=== PATIENT | female | born 1975 | race Caucasian/White ===

== ENCOUNTER 2021-07-24 21:19 | Emergency (ER) | payer MEDICAID, OTHER ==
[~2021-07-24] VITALS: Ht 160 cm; Wt 113.6 kg
[2021-07-24] MEDS ORDERED: GABA-1201 PO (22:04)
[2021-07-25] MEDS ORDERED: OxyCODONE HCL/ACETAMINOPHEN 5-325 MG TABLET PO ONE
[2021-07-25 00:15] VITALS: BP 121/75
[2021-07-25] MEDS ORDERED: PERCT PO (00:20)
== END 2021-07-25 00:40 | disposition home or self-care (01) ==
LOC: EMS 21:19
DX: R10.2 Pelvic and perineal pain (principal); C51.9 Malignant neoplasm of vulva, unspecified; Z88.5 Allergy status to narcotic agent; Z79.899 Other long term (current) drug therapy
CPT/HCPCS: 99283

== ENCOUNTER 2023-11-26 16:10 | Inpatient (IN) | payer OTHER ==
[~2023-11-26] VITALS: Ht 165.1 cm; Wt 128.0 kg
[~2023-11-26 16:10] MED LIST: GABA-1201 PO; PERCT PO
[2023-11-26] MEDS ORDERED: 0.9% SODIUM CHLORIDE 10 ML SYRINGE IVP PRN (16:15)
[2023-11-26] MEDS: SODIUM CHLORIDE 0.9% 3,000 ML IV ONE (17:20)
[2023-11-26] MEDS: ACETAMINOPHEN 1000 MG/ISO-OSM 100 ML IV ONE (17:20)
[2023-11-26] MEDS: PIPERACILLIN SODIUM/TAZOBACTAM 4.5 GM in DEXTROSE 5%-WATER 100 ML IV ONE (17:27)
[2023-11-26] MEDS: VANCOMYCIN HCL 1.25 GM in DEXTROSE 5%-WATER 250 ML IV ONE (17:27)
[2023-11-26 17:36] LABS: BASOPHILS % (AUTO) 0.1 % (0.0-2.0); EOSINOPHILS % (AUTO) 0.1 % (1.0-6.0); HEMATOCRIT 41.6 % (36-46); HEMOGLOBIN 13.6 g/dL (12.0-16.0); LYMPHOCYTES # (AUTO) 0.9 K/uL (1.0-4.8); LYMPHOCYTES % (AUTO) 11.8 % (22.0-44.0); MEAN CORPUSCULAR HGB CONC 32.7 G/dL (31.0-37.0); MEAN CORPUSCULAR VOLUME 92 fL (80-100); MONOCYTES # (AUTO) 0.2 K/uL (0.1-1.0); MONOCYTES % (AUTO) 2.6 % (2.0-9.0); NEUTROPHILS # (AUTO) 6.2 K/uL (1.8-7.7); PLATELET COUNT (AUTO) 232 K/uL (150-450); RED BLOOD CELL COUNT(AUTO) 4.53 MIL/uL (4.00-5.20); RED CELL DISTRIBUTION WIDTH 15.7 % (11.5-14.5); WHITE BLOOD COUNT (AUTO) 7.2 K/uL (4.5-11.0)
[2023-11-26 17:37] LABS: NEUTROPHILS % (AUTO) 85.4 % (40.0-70.0)
[2023-11-26 17:38] LABS: ANION GAP 14 mmol/L (8-16); CALCIUM, TOTAL 8.8 mg/dL (8.8-10.5); CARBON DIOXIDE 24 mmol/L (22-29); CHLORIDE 88 mmol/L (98-107); CREATININE 3.52 mg/dL (0.60-1.30); GLOMERULAR FILTR. RATE CALC 14 mL/min (>60); GLUCOSE,RANDOM 89 mg/dL (70-110); POTASSIUM 5.1 mmol/L (3.5-5.1); SODIUM SERUM 126 mmol/L (136-145); UREA NITROGEN, BLOOD 36 mg/dL (7-18)
[2023-11-26 17:44] LABS: TROPONIN I-HIGH SENSITIVITY 62 ng/L (<51)
[2023-11-26 17:45] LABS: LACTIC ACID 5.5 mmol/L (0.4-2.0)
[2023-11-26 17:50] LABS: B-TYPE NATRIURETIC PEPTIDE 522 pg/mL (0-100); PLATELET MORPHOLOGY COMMENT LARGE PLTS PRESENT; RBC MORPHOLOGY COMMENT NORMAL RBC MORPH
[2023-11-26 18:15] LABS: ALANINE AMINOTRANSFERASE 58 U/L (12-78); ALBUMIN 2.8 g/dL (3.4-5.0); ALKALINE PHOSPHATASE 58 U/L (46-116); ASPARTATE AMINOTRANSFERASE 101 U/L (15-37); PHOSPHORUS 2.1 mg/dL (2.5-4.9); TOTAL PROTEIN, SERUM 6.9 g/dL (6.4-8.2)
[2023-11-26 18:20] LABS: CREATINE KINASE, TOTAL ONLY 2388 U/L (26-192)
[2023-11-26 18:38] LABS: COVID AG,FIA SOURCE NASAL SWAB
[2023-11-26] MEDS: NOREPINEPHRINE 8 MG/0.9 % NACL 250 ML IV PRN (18:47)
[2023-11-26 19:03] LABS: SARS-COV2 (COVID) ANTIGEN,FIA Negative (Negative)
[2023-11-26 19:16] LABS: C-REACTIVE PROTEIN QUANT 39.25 mg/dL (0.00-0.30)
[2023-11-26 19:18] LABS: INFLUENZA TYPE A NEGATIVE FOR TYPE A (NEGATIVE); INFLUENZA TYPE B NEGATIVE FOR TYPE B (NEGATIVE)
[2023-11-26 20:00] VITALS: BP 133/73; PULSE 92; PULSE 95; RESP 22; TEMP 100.5; O2SAT 96
[2023-11-26] MEDS ORDERED: ONDANSETRON HCL 4 MG/2 ML VIAL IVP PRN (20:00)
[2023-11-26] MEDS: *CLINICAL-MEROPENEM DOSING CLINICAL ONE (20:14)
[2023-11-26] MEDS ORDERED: DEXTROSE 50%-WATER 25 GM/50 ML SYRINGE IVP PRN (20:15)
[2023-11-26 20:33] LABS: APPEARANCE,URINE HAZY (CLEAR); BILIRUBIN,URINE NEGATIVE (NEGATIVE); COLOR,URINE YELLOW (YELLOW); CREATININE,URINE RANDOM 161.5 mg/dL (30.0-125.0); GLUCOSE, URINE (UA) NEGATIVE (NEGATIVE); KETONES,URINE NEGATIVE (NEGATIVE); LEUKOCYTE ESTERASE ,URINE NEGATIVE (NEGATIVE); NITRATE,URINE NEGATIVE (NEGATIVE); OCCULT BLOOD,URINE MODERATE (NEGATIVE); PROTEIN,URINE 30-70 mg/dL (NEGATIVE); SPECIFIC GRAVITIY, URINE 1.016 (1.003-1.030); UROBILINOGEN,URINE <=1.0 mg/dL (<=1.0)
[2023-11-26] MEDS ORDERED: VANCOMYCIN HCL 1 GM in DEXTROSE 5%-WATER 250 ML IV PRN (20:45)
[2023-11-26 20:48] LABS: BACTERIA,URINE Few /HPF (None Seen); SQUAMOUS EPITHELIAL CELL,UR Moderate /LPF (None Seen); WBC,URINE 0-2 /HPF (0-5)
[2023-11-26 21:00] VITALS: BP 153/108; PULSE 98; RESP 22; TEMP 100.5; O2SAT 96
[2023-11-26 21:40] LABS: TROPONIN I-HIGH SENSITIVITY 37 ng/L (<51)
[2023-11-26] MEDS: CLINDAMYCIN 600 MG/D5% WATER 50 ML IV ONE (21:59)
[2023-11-26] MEDS: MAGNESIUM SULFATE 1 GM in DEXTROSE 5%-WATER 50 ML IV ONE (21:59)
[2023-11-26 22:00] VITALS: BP 101/66; PULSE 95; RESP 22; TEMP 100.5; O2SAT 96
[2023-11-26] MEDS: CHLORHEXIDINE GLUCONATE 2% TOWELETTE [2'S/6'S] TP SCH (22:00)
[2023-11-26] MEDS: SODIUM CHLORIDE 0.9% 500 ML IV ONE (22:03)
[2023-11-26] MEDS: MEROPENEM 1 GM in SODIUM CHLORIDE 0.9% 100 ML IV SCH (22:42)
[2023-11-26 22:55] LABS: ABG BASE EXCESS -6.5 mmol/L (-2.0-3.0); ABG CARBOXYHEMOGLOBIN 0.4 % (0.5-1.5); ABG HCO3 20.1 mmol/L (21.0-28.0); ABG METHEMOGLOBIN 0.7 % (0.0-1.5); ABG OXYGEN CONTENT 18.3 mL/dL (15.0-23.0); ABG OXYHEMOGLOBIN 95.9 % (94.0-98.0); ABG PCO2 33 mmHg (32.0-45.0); ABG PH 7.369 (7.350-7.450); ABG TOTAL HEMOGLOBIN 13.5 G/dL (12.0-16.0); ALLEN TEST, BLOOD GAS POS; PO2, ARTERIAL BG 95.5 mmHg (83.0-108.0); SITE, BLOOD GAS RT RADIAL; SOURCE, BLOOD GAS ARTERIAL; TEMPERATURE, FAHRENHEIT, BG 100.7 FAHREN (96.0-98.6)
[2023-11-26 22:56] LABS: O2 DEVICE,BLOOD GAS CANNULA (ROOM AIR)
[2023-11-26 23:00] VITALS: BP 102/51; PULSE 91; RESP 22; TEMP 100.5; O2SAT 96
[2023-11-26] MEDS: ACETAMINOPHEN 325 MG TABLET PO PRN (23:40)
[2023-11-27] VITALS (7 sets, daily range): BP systolic 98–137; BP diastolic 55–80; PULSE 78–90; RESP 22–23; TEMP 100.6–101.5; O2SAT 98
[2023-11-27 06:36] LABS: BASOPHILS % (AUTO) 0.2 % (0.0-2.0); EOSINOPHILS % (AUTO) 0.3 % (1.0-6.0); HEMATOCRIT 36.9 % (36-46); HEMOGLOBIN 12.3 g/dL (12.0-16.0); LYMPHOCYTES # (AUTO) 0.6 K/uL (1.0-4.8); LYMPHOCYTES % (AUTO) 9.3 % (22.0-44.0); MEAN CORPUSCULAR HEMOGLOBIN 30.3 pg (26.0-34.0); MEAN CORPUSCULAR HGB CONC 33.2 G/dL (31.0-37.0); MEAN CORPUSCULAR VOLUME 91 fL (80-100); MONOCYTES # (AUTO) 0.2 K/uL (0.1-1.0); MONOCYTES % (AUTO) 2.4 % (2.0-9.0); NEUTROPHILS # (AUTO) 5.7 K/uL (1.8-7.7); PLATELET COUNT (AUTO) 184 K/uL (150-450); RED BLOOD CELL COUNT(AUTO) 4.05 MIL/uL (4.00-5.20); RED CELL DISTRIBUTION WIDTH 15.8 % (11.5-14.5); WHITE BLOOD COUNT (AUTO) 6.5 K/uL (4.5-11.0)
[2023-11-27 06:37] LABS: NEUTROPHILS % (AUTO) 87.8 % (40.0-70.0); RBC MORPHOLOGY COMMENT NORMAL RBC MORPH
[2023-11-27 07:03] LABS: ALBUMIN 2.2 g/dL (3.4-5.0); BILIRUBIN,TOTAL 0.7 mg/dL (0.1-1.0); CALCIUM, TOTAL 7.9 mg/dL (8.8-10.5); CREATININE 2.24 mg/dL (0.60-1.30); POTASSIUM 4.3 mmol/L (3.5-5.1); TOTAL PROTEIN, SERUM 6.1 g/dL (6.4-8.2)
[2023-11-27 07:51] LABS: GLUCOMETER DEV NAME(LOC) ERT.6; GLUCOSE,POINT OF CARE 100 MG/DL (70-110)
[2023-11-27 07:51] LABS: GLUCOMETER DEV NAME(LOC) ERT.6; GLUCOSE,POINT OF CARE 73 MG/DL (70-110)
[2023-11-27] MEDS: FAMOTIDINE 20 MG/2 ML VIAL IVP SCH (08:03)
[2023-11-27] MEDS: OxyCODONE HCL 5 MG IR TABLET PO ONE (08:03)
[2023-11-27] MEDS: NOREPINEPHRINE 8 MG/0.9 % NACL 250 ML IV PRN (08:05)
[2023-11-27] MEDS: VANCOMYCIN HCL 1 GM in DEXTROSE 5%-WATER 250 ML IV ONE (09:29)
[2023-11-27] MEDS: HYDROmorphone HCL 2 MG/ML SYRINGE IVP ONE (12:24)
[2023-11-27 14:46] LABS: GLUCOMETER DEV NAME(LOC) ERT.6; GLUCOSE,POINT OF CARE 119 MG/DL (70-110)
[2023-11-27] MEDS: SODIUM CHLORIDE 0.9% 1,000 ML IV ONE (15:25)
[2023-11-27] MEDS: CLINDAMYCIN 900 MG/D5% WATER 50 ML IV SCH (16:30)
[2023-11-27] MEDS ORDERED: ALBUMIN HUMAN 25%-25GM/100ML 100 ML IV SCH (18:00)
[2023-11-27 18:05] LABS: GLUCOMETER DEV NAME(LOC) ERT.6; GLUCOSE,POINT OF CARE 133 MG/DL (70-110)
[2023-11-27] MEDS: LORazepam 1 MG TABLET PO ONE (20:01)
[2023-11-27] MEDS: HYDROmorphone HCL 2 MG/ML SYRINGE IVP PRN (20:02)
[2023-11-27] MEDS: ALBUMIN HUMAN 25%-25GM/100ML 100 ML IV SCH (20:18)
[2023-11-27] MEDS: IBUPROFEN 200 MG TABLET PO ONE (23:51)
[2023-11-27] MEDS: HEPARIN SODIUM,PORCINE 5,000 UNITS/ML VIAL SQ SCH (23:58)
[2023-11-28 06:16] LABS: VANCOMYCIN,RANDOM 0.3 mcg/mL (25.0-50.0)
[2023-11-28] MEDS: LORazepam 2 MG/ML VIAL IVP ONE (06:29)
[2023-11-28] MEDS: VANCOMYCIN HCL 1.5 GM in DEXTROSE 5%-WATER 250 ML IV ONE (08:10)
[2023-11-28 08:28] LABS: BASOPHILS % (AUTO) 0.2 % (0.0-2.0); EOSINOPHILS % (AUTO) 0.3 % (1.0-6.0); HEMATOCRIT 31.8 % (36-46); HEMOGLOBIN 10.7 g/dL (12.0-16.0); LYMPHOCYTES # (AUTO) 0.5 K/uL (1.0-4.8); LYMPHOCYTES % (AUTO) 6.8 % (22.0-44.0); MEAN CORPUSCULAR HEMOGLOBIN 30.5 pg (26.0-34.0); MEAN CORPUSCULAR HGB CONC 33.5 G/dL (31.0-37.0); MEAN CORPUSCULAR VOLUME 91 fL (80-100); MONOCYTES # (AUTO) 0.3 K/uL (0.1-1.0); MONOCYTES % (AUTO) 3.3 % (2.0-9.0); NEUTROPHILS # (AUTO) 7.1 K/uL (1.8-7.7); PLATELET COUNT (AUTO) 136 K/uL (150-450); RED BLOOD CELL COUNT(AUTO) 3.49 MIL/uL (4.00-5.20); RED CELL DISTRIBUTION WIDTH 15.8 % (11.5-14.5); WHITE BLOOD COUNT (AUTO) 7.9 K/uL (4.5-11.0)
[2023-11-28 08:30] LABS: NEUTROPHILS % (AUTO) 89.4 % (40.0-70.0)
[2023-11-28 08:41] LABS: ANION GAP 10 mmol/L (8-16); CALCIUM, TOTAL 8.1 mg/dL (8.8-10.5); CARBON DIOXIDE 25 mmol/L (22-29); CHLORIDE 98 mmol/L (98-107); CREATININE 0.85 mg/dL (0.60-1.30); GLOMERULAR FILTR. RATE CALC > 60 mL/min (>60); GLUCOSE,RANDOM 100 mg/dL (70-110); POTASSIUM 3.8 mmol/L (3.5-5.1); SODIUM SERUM 133 mmol/L (136-145); UREA NITROGEN, BLOOD 20 mg/dL (7-18)
[2023-11-28] MEDS: MEROPENEM 1 GM in SODIUM CHLORIDE 0.9% 100 ML IV SCH (10:34)
[2023-11-28] MEDS: SODIUM CHLORIDE 0.9% 1,000 ML IV ONE (13:10)
[2023-11-28 14:00] VITALS: BP 118/60; PULSE 82; RESP 18; TEMP 98; O2SAT 100
[2023-11-28 15:51] VITALS: BP 111/53; PULSE 93; RESP 24; TEMP 98.3; O2SAT 95
[2023-11-28] MEDS: LEVOFLOXACIN 750 MG/D5% WATER 150 ML IV SCH (16:35)
[2023-11-28 22:51] LABS: GLUCOMETER DEV NAME(LOC) 5S.1C; GLUCOSE,POINT OF CARE 87 MG/DL (70-110)
[2023-11-29] MEDS: VANCOMYCIN HCL 1.5 GM in DEXTROSE 5%-WATER 250 ML IV SCH (00:04)
[2023-11-29 03:20] LABS: ALCOHOL, URINE DRUG SCREEN NEGATIVE (NEGATIVE); AMPHET/METH SCREEN,URINE POSITIVE (NEGATIVE); BARBITURATE SCREEN, URINE NEGATIVE (NEGATIVE); BENZODIAZEPINES SCREEN,URINE NEGATIVE (NEGATIVE); CANNABINOID SCREEN,URINE NEGATIVE (NEGATIVE); COCAINE SCREEN,URINE NEGATIVE (NEGATIVE); METHADONE SCREEN, URINE NEGATIVE (NEGATIVE); OPIATE SCREEN,URINE POSITIVE (NEGATIVE); PHENCYCLIDINE SCREEN,URINE NEGATIVE (NEGATIVE)
[2023-11-29 04:15] VITALS: BP 115/62; PULSE 76; RESP 16; TEMP 98.6; O2SAT 94
[2023-11-29 07:07] LABS: BASOPHILS % (AUTO) 0.1 % (0.0-2.0); EOSINOPHILS % (AUTO) 0.1 % (1.0-6.0); HEMATOCRIT 36.8 % (36-46); HEMOGLOBIN 12.2 g/dL (12.0-16.0); LYMPHOCYTES # (AUTO) 1.1 K/uL (1.0-4.8); LYMPHOCYTES % (AUTO) 9.8 % (22.0-44.0); MEAN CORPUSCULAR HEMOGLOBIN 30.3 pg (26.0-34.0); MEAN CORPUSCULAR HGB CONC 33.2 G/dL (31.0-37.0); MEAN CORPUSCULAR VOLUME 91 fL (80-100); MONOCYTES # (AUTO) 0.4 K/uL (0.1-1.0); MONOCYTES % (AUTO) 3.7 % (2.0-9.0); NEUTROPHILS # (AUTO) 9.3 K/uL (1.8-7.7); PLATELET COUNT (AUTO) 153 K/uL (150-450); RED BLOOD CELL COUNT(AUTO) 4.02 MIL/uL (4.00-5.20); RED CELL DISTRIBUTION WIDTH 15.9 % (11.5-14.5); WHITE BLOOD COUNT (AUTO) 10.8 K/uL (4.5-11.0)
[2023-11-29 07:09] LABS: NEUTROPHILS % (AUTO) 86.3 % (40.0-70.0)
[2023-11-29 07:10] LABS: GLUCOMETER DEV NAME(LOC) 5S.2D; GLUCOSE,POINT OF CARE 109 MG/DL (70-110)
[2023-11-29 07:59] LABS: ANION GAP 12 mmol/L (8-16); CALCIUM, TOTAL 8.4 mg/dL (8.8-10.5); CARBON DIOXIDE 24 mmol/L (22-29); CHLORIDE 92 mmol/L (98-107); CREATININE 0.84 mg/dL (0.60-1.30); GLOMERULAR FILTR. RATE CALC > 60 mL/min (>60); GLUCOSE,RANDOM 94 mg/dL (70-110); POTASSIUM 4.3 mmol/L (3.5-5.1); SODIUM SERUM 128 mmol/L (136-145); UREA NITROGEN, BLOOD 6 mg/dL (7-18)
[2023-11-29] MEDS: DiphenhydrAMINE HCL 50 MG/ML VIAL IVP ONE (08:22)
[2023-11-29] MEDS: OxyCODONE HCL/ACETAMINOPHEN 5-325 MG TABLET PO PRN (09:12)
[2023-11-29 13:16] LABS: CALCIUM, TOTAL 7.9 mg/dL (8.8-10.5); CREATININE 1.02 mg/dL (0.60-1.30); POTASSIUM 4.2 mmol/L (3.5-5.1)
[2023-11-29 13:45] LABS: TROPONIN I-HIGH SENSITIVITY 5 ng/L (<51)
[2023-11-29 15:18] VITALS: BP 115/55; PULSE 73; RESP 16; TEMP 97.8; O2SAT 98
[2023-11-29 15:55] LABS: GLUCOMETER DEV NAME(LOC) 5S.1C; GLUCOSE,POINT OF CARE 112 MG/DL (70-110)
[2023-11-29] MEDS: DOXYCYCLINE HYCLATE 100 MG in DEXTROSE 5%-WATER 100 ML IV SCH (16:39)
[2023-11-29 20:03] VITALS: BP 105/54; PULSE 79; RESP 19; TEMP 97.7; O2SAT 96
[2023-11-30 06:33] LABS: BASOPHILS % (AUTO) 0.1 % (0.0-2.0); EOSINOPHILS % (AUTO) 0.5 % (1.0-6.0); HEMATOCRIT 30.8 % (36-46); HEMOGLOBIN 10.3 g/dL (12.0-16.0); LYMPHOCYTES # (AUTO) 0.8 K/uL (1.0-4.8); LYMPHOCYTES % (AUTO) 6.9 % (22.0-44.0); MEAN CORPUSCULAR HEMOGLOBIN 30.1 pg (26.0-34.0); MEAN CORPUSCULAR HGB CONC 33.4 G/dL (31.0-37.0); MEAN CORPUSCULAR VOLUME 90 fL (80-100); MONOCYTES # (AUTO) 0.8 K/uL (0.1-1.0); MONOCYTES % (AUTO) 6.5 % (2.0-9.0); NEUTROPHILS # (AUTO) 10.6 K/uL (1.8-7.7); PLATELET COUNT (AUTO) 154 K/uL (150-450); RED BLOOD CELL COUNT(AUTO) 3.41 MIL/uL (4.00-5.20); RED CELL DISTRIBUTION WIDTH 15.9 % (11.5-14.5); WHITE BLOOD COUNT (AUTO) 12.3 K/uL (4.5-11.0)
[2023-11-30 06:58] LABS: PROTHROMBIN TIME 10.9 SEC (9.4-11.6)
[2023-11-30 07:23] LABS: ALANINE AMINOTRANSFERASE 33 U/L (12-78); ALBUMIN 2.6 g/dL (3.4-5.0); ALKALINE PHOSPHATASE 101 U/L (46-116); ANION GAP 12 mmol/L (8-16); ASPARTATE AMINOTRANSFERASE 14 U/L (15-37); BILIRUBIN,TOTAL 0.8 mg/dL (0.1-1.0); C-REACTIVE PROTEIN QUANT 24.15 mg/dL (0.00-0.30); CALCIUM, TOTAL 8.4 mg/dL (8.8-10.5); CARBON DIOXIDE 25 mmol/L (22-29); CHLORIDE 95 mmol/L (98-107); CREATINE KINASE, TOTAL ONLY 103 U/L (26-192); CREATININE 0.77 mg/dL (0.60-1.30); GLOMERULAR FILTR. RATE CALC > 60 mL/min (>60); GLUCOSE,RANDOM 120 mg/dL (70-110); POTASSIUM 3.9 mmol/L (3.5-5.1); SODIUM SERUM 132 mmol/L (136-145); TOTAL PROTEIN, SERUM 6.3 g/dL (6.4-8.2); UREA NITROGEN, BLOOD 11 mg/dL (7-18); VANCOMYCIN,RANDOM 21.3 mcg/mL (25.0-50.0)
[2023-11-30 08:17] VITALS: BP 110/66; PULSE 82; RESP 16; TEMP 97.8; O2SAT 95
[2023-11-30 12:04] VITALS: BP 108/65; PULSE 70; RESP 16; TEMP 98; O2SAT 100
[2023-11-30] MEDS: GABAPENTIN 100 MG CAPSULE PO SCH (15:51)
[2023-11-30 16:21] VITALS: BP 104/58; PULSE 80; RESP 16; TEMP 98.3; O2SAT 98
[2023-11-30] MEDS: CLINDAMYCIN 900 MG/D5% WATER 50 ML IV SCH (17:24)
[2023-11-30] MEDS: LORazepam 2 MG/ML VIAL IVP ONE (18:30)
[2023-11-30 20:07] VITALS: BP 105/53; PULSE 83; RESP 17; TEMP 98; O2SAT 97
[2023-11-30 22:51] LABS: GLUCOMETER DEV NAME(LOC) 5S.2D; GLUCOSE,POINT OF CARE 146 MG/DL (70-110)
[2023-12-01] MEDS ORDERED: SODIUM CHLORIDE 0.9% 500 ML IV ONE (02:24)
[2023-12-01 08:35] VITALS: BP 114/64; PULSE 80; RESP 18; TEMP 98.2; O2SAT 98
[2023-12-01] MEDS: VANCOMYCIN HCL 1.25 GM in DEXTROSE 5%-WATER 250 ML IV SCH (09:01)
[2023-12-01 10:08] LABS: BASOPHILS % (AUTO) 0.1 % (0.0-2.0); EOSINOPHILS % (AUTO) 0.5 % (1.0-6.0); HEMATOCRIT 29.6 % (36-46); HEMOGLOBIN 9.8 g/dL (12.0-16.0); LYMPHOCYTES # (AUTO) 0.9 K/uL (1.0-4.8); LYMPHOCYTES % (AUTO) 8.3 % (22.0-44.0); MEAN CORPUSCULAR HEMOGLOBIN 30.1 pg (26.0-34.0); MEAN CORPUSCULAR HGB CONC 33.3 G/dL (31.0-37.0); MEAN CORPUSCULAR VOLUME 90 fL (80-100); MONOCYTES # (AUTO) 0.9 K/uL (0.1-1.0); MONOCYTES % (AUTO) 8.6 % (2.0-9.0); NEUTROPHILS # (AUTO) 9.1 K/uL (1.8-7.7); NEUTROPHILS % (AUTO) 82.5 % (40.0-70.0); PLATELET COUNT (AUTO) 207 K/uL (150-450); RED BLOOD CELL COUNT(AUTO) 3.28 MIL/uL (4.00-5.20); RED CELL DISTRIBUTION WIDTH 16.3 % (11.5-14.5)
[2023-12-01 10:25] LABS: ANION GAP 10 mmol/L (8-16); CALCIUM, TOTAL 8.5 mg/dL (8.8-10.5); CARBON DIOXIDE 27 mmol/L (22-29); CHLORIDE 95 mmol/L (98-107); CREATININE 0.54 mg/dL (0.60-1.30); GLOMERULAR FILTR. RATE CALC > 60 mL/min (>60); GLUCOSE,RANDOM 140 mg/dL (70-110); POTASSIUM 3.6 mmol/L (3.5-5.1); SODIUM SERUM 132 mmol/L (136-145); UREA NITROGEN, BLOOD 8 mg/dL (7-18)
[2023-12-01 15:03] VITALS: BP 125/65; PULSE 81; RESP 18; TEMP 98.1; O2SAT 97
[2023-12-01 20:00] VITALS: BP 133/65; PULSE 92; RESP 18; TEMP 98.2; O2SAT 98
[2023-12-01 22:36] LABS: GLUCOMETER DEV NAME(LOC) 6N.2B; GLUCOSE,POINT OF CARE 99 MG/DL (70-110)
[2023-12-02 07:55] VITALS: BP 111/62; PULSE 81; RESP 18; TEMP 97.8; O2SAT 100
[2023-12-02 07:59] LABS: ANION GAP 6 mmol/L (8-16); C-REACTIVE PROTEIN QUANT 21.12 mg/dL (0.00-0.30); CALCIUM, TOTAL 8.7 mg/dL (8.8-10.5); CARBON DIOXIDE 32 mmol/L (22-29); CHLORIDE 96 mmol/L (98-107); CREATININE 0.57 mg/dL (0.60-1.30); GLOMERULAR FILTR. RATE CALC > 60 mL/min (>60); GLUCOSE,RANDOM 114 mg/dL (70-110); POTASSIUM 3.7 mmol/L (3.5-5.1); SODIUM SERUM 134 mmol/L (136-145); UREA NITROGEN, BLOOD 8 mg/dL (7-18)
[2023-12-02 15:44] VITALS: BP 130/65; PULSE 87; RESP 18; TEMP 99.3; O2SAT 98
[2023-12-02] MEDS: INSULIN LISPRO 100 UNITS/ML SQ PRN (16:53)
[2023-12-02 18:00] LABS: GLUCOMETER DEV NAME(LOC) 6N.2B; GLUCOSE,POINT OF CARE 144 MG/DL (70-110)
[2023-12-02 19:46] VITALS: BP 114/58; PULSE 84; RESP 20; TEMP 98.2; O2SAT 94
[2023-12-03 00:51] LABS: GLUCOMETER DEV NAME(LOC) 6N.2B; GLUCOSE,POINT OF CARE 143 MG/DL (70-110)
[2023-12-03 08:25] LABS: EOSINOPHILS % (AUTO) 0.8 % (1.0-6.0); HEMATOCRIT 26.6 % (36-46); HEMOGLOBIN 8.9 g/dL (12.0-16.0); LYMPHOCYTES # (AUTO) 0.9 K/uL (1.0-4.8); LYMPHOCYTES % (AUTO) 7.1 % (22.0-44.0); MEAN CORPUSCULAR HEMOGLOBIN 30.1 pg (26.0-34.0); MEAN CORPUSCULAR HGB CONC 33.3 G/dL (31.0-37.0); MEAN CORPUSCULAR VOLUME 90 fL (80-100); MONOCYTES # (AUTO) 0.9 K/uL (0.1-1.0); MONOCYTES % (AUTO) 7.8 % (2.0-9.0); NEUTROPHILS # (AUTO) 10.2 K/uL (1.8-7.7); NEUTROPHILS % (AUTO) 84.3 % (40.0-70.0); PLATELET COUNT (AUTO) 299 K/uL (150-450); RED BLOOD CELL COUNT(AUTO) 2.94 MIL/uL (4.00-5.20); RED CELL DISTRIBUTION WIDTH 16.1 % (11.5-14.5); WHITE BLOOD COUNT (AUTO) 12.1 K/uL (4.5-11.0)
[2023-12-03 08:59] LABS: ANION GAP 8 mmol/L (8-16); CALCIUM, TOTAL 8.7 mg/dL (8.8-10.5); CARBON DIOXIDE 30 mmol/L (22-29); CHLORIDE 95 mmol/L (98-107); CREATININE 0.53 mg/dL (0.60-1.30); GLOMERULAR FILTR. RATE CALC > 60 mL/min (>60); GLUCOSE,RANDOM 122 mg/dL (70-110); SODIUM SERUM 133 mmol/L (136-145); UREA NITROGEN, BLOOD 12 mg/dL (7-18); VANCOMYCIN,RANDOM 22.4 mcg/mL (25.0-50.0)
[2023-12-03 11:46] LABS: GLUCOMETER DEV NAME(LOC) 6N.2B; GLUCOSE,POINT OF CARE 133 MG/DL (70-110)
[2023-12-03] MEDS: DOCUSATE SODIUM 100 MG CAPSULE PO SCH (12:14)
[2023-12-03] MEDS: ALPRAZolam 0.5 MG TABLET PO PRN (12:14)
[2023-12-03 17:25] LABS: GLUCOMETER DEV NAME(LOC) 4E.2; GLUCOSE,POINT OF CARE 106 MG/DL (70-110)
[2023-12-03 19:36] VITALS: BP 112/56; PULSE 89; RESP 18; TEMP 98.2; O2SAT 96
[2023-12-03 20:56] LABS: GLUCOMETER DEV NAME(LOC) 4E.2; GLUCOSE,POINT OF CARE 150 MG/DL (70-110)
[2023-12-04 03:15] VITALS: BP 108/57; PULSE 85; RESP 18; TEMP 97.9; O2SAT 97
[2023-12-04 05:26] LABS: GLUCOMETER DEV NAME(LOC) 4E.2; GLUCOSE,POINT OF CARE 133 MG/DL (70-110)
[2023-12-04 08:09] VITALS: BP 125/70; PULSE 84; RESP 18; TEMP 97; O2SAT 100
[2023-12-04] MEDS ORDERED: HYDR-4808 PO (13:21)
[2023-12-04] MEDS: ALPRAZolam 0.5 MG TABLET PO PRN (13:26)
[2023-12-04 15:29] VITALS: BP 102/56; PULSE 91; RESP 18; TEMP 98.4; O2SAT 95
[2023-12-04] MEDS: CefTRIAXone SODIUM 2 GM in DEXTROSE 5%-WATER 50 ML IV SCH (18:20)
[2023-12-04 20:00] VITALS: BP 103/55; PULSE 93; RESP 18; TEMP 98.5; O2SAT 95
[2023-12-04 22:16] LABS: GLUCOMETER DEV NAME(LOC) 6N.2B; GLUCOSE,POINT OF CARE 143 MG/DL (70-110)
[2023-12-04 22:16] LABS: GLUCOMETER DEV NAME(LOC) 6N.2B; GLUCOSE,POINT OF CARE 132 MG/DL (70-110)
[2023-12-04 22:16] LABS: GLUCOMETER DEV NAME(LOC) 6N.2B; GLUCOSE,POINT OF CARE 133 MG/DL (70-110)
[2023-12-05 02:30] VITALS: BP 111/57; PULSE 80; RESP 18; TEMP 97.9; O2SAT 94
[2023-12-05] MEDS ORDERED: SODIUM CHLORIDE 0.9% 250 ML IV ONE (04:17)
[2023-12-05 06:16] LABS: GLUCOMETER DEV NAME(LOC) 6N.2B; GLUCOSE,POINT OF CARE 146 MG/DL (70-110)
[2023-12-05 07:27] LABS: BASOPHILS % (AUTO) 0.2 % (0.0-2.0); EOSINOPHILS % (AUTO) 0.8 % (1.0-6.0); HEMATOCRIT 26.8 % (36-46); HEMOGLOBIN 8.8 g/dL (12.0-16.0); LYMPHOCYTES # (AUTO) 0.9 K/uL (1.0-4.8); LYMPHOCYTES % (AUTO) 7.8 % (22.0-44.0); MEAN CORPUSCULAR VOLUME 91 fL (80-100); MONOCYTES # (AUTO) 0.8 K/uL (0.1-1.0); NEUTROPHILS # (AUTO) 10.2 K/uL (1.8-7.7); NEUTROPHILS % (AUTO) 84.2 % (40.0-70.0); PLATELET COUNT (AUTO) 347 K/uL (150-450); RED BLOOD CELL COUNT(AUTO) 2.95 MIL/uL (4.00-5.20); RED CELL DISTRIBUTION WIDTH 16.2 % (11.5-14.5); WHITE BLOOD COUNT (AUTO) 12.1 K/uL (4.5-11.0)
[2023-12-05 07:47] LABS: ALANINE AMINOTRANSFERASE 32 U/L (12-78); ALBUMIN 3.1 g/dL (3.4-5.0); ALKALINE PHOSPHATASE 103 U/L (46-116); ANION GAP 8 mmol/L (8-16); ASPARTATE AMINOTRANSFERASE 19 U/L (15-37); BILIRUBIN,TOTAL 0.8 mg/dL (0.1-1.0); C-REACTIVE PROTEIN QUANT 19.67 mg/dL (0.00-0.30); CALCIUM, TOTAL 8.5 mg/dL (8.8-10.5); CARBON DIOXIDE 30 mmol/L (22-29); CHLORIDE 94 mmol/L (98-107); CREATININE 0.52 mg/dL (0.60-1.30); GLOMERULAR FILTR. RATE CALC > 60 mL/min (>60); GLUCOSE,RANDOM 117 mg/dL (70-110); POTASSIUM 4.1 mmol/L (3.5-5.1); SODIUM SERUM 132 mmol/L (136-145); TOTAL PROTEIN, SERUM 6.3 g/dL (6.4-8.2); UREA NITROGEN, BLOOD 11 mg/dL (7-18)
[2023-12-05 08:23] VITALS: BP 113/63; PULSE 83; RESP 16; TEMP 98.6; O2SAT 98
[2023-12-05] MEDS: GABAPENTIN 400 MG CAPSULE PO SCH (17:11)
[2023-12-05 17:31] LABS: GLUCOMETER DEV NAME(LOC) 6N.2B; GLUCOSE,POINT OF CARE 107 MG/DL (70-110)
[2023-12-05 20:00] VITALS: BP 118/60; PULSE 95; RESP 18; TEMP 99.3; O2SAT 94
[2023-12-06 00:56] LABS: GLUCOMETER DEV NAME(LOC) 6N.2B; GLUCOSE,POINT OF CARE 140 MG/DL (70-110)
[2023-12-06 03:49] VITALS: BP 107/55; PULSE 87; RESP 20; TEMP 98.3; O2SAT 99
[2023-12-06 09:10] VITALS: BP 128/58; PULSE 87; RESP 18; TEMP 98.5; O2SAT 96
[2023-12-06 15:46] LABS: GLUCOMETER DEV NAME(LOC) 6N.2B; GLUCOSE,POINT OF CARE 154 MG/DL (70-110)
[2023-12-06] MEDS: CeFAZolin 2 GM/DEXTROSE 50 ML IV SCH (16:37)
[2023-12-06 19:50] VITALS: BP 112/59; PULSE 73; RESP 18; TEMP 98.1; O2SAT 96
[2023-12-06 21:56] LABS: GLUCOMETER DEV NAME(LOC) 4E.2; GLUCOSE,POINT OF CARE 109 MG/DL (70-110)
[2023-12-06 21:56] LABS: GLUCOMETER DEV NAME(LOC) 4E.2; GLUCOSE,POINT OF CARE 119 MG/DL (70-110)
[2023-12-06] MEDS ORDERED: SODIUM CHLORIDE 0.9% 500 ML IV ONE (22:50)
[2023-12-06 22:51] LABS: GLUCOMETER DEV NAME(LOC) 6N.2B; GLUCOSE,POINT OF CARE 123 MG/DL (70-110)
[2023-12-07 06:04] VITALS: BP 107/61; PULSE 95; RESP 16; TEMP 98.3; O2SAT 96
[2023-12-07 08:05] VITALS: BP 118/51; PULSE 85; RESP 20; TEMP 98.5; O2SAT 96
[2023-12-07 08:30] VITALS: BP 112/72; PULSE 86; RESP 18; TEMP 98.3; O2SAT 97
[2023-12-07] MEDS: HydrOXYzine PAMOATE 25 MG CAPSULE PO PRN (08:52)
[2023-12-07 10:24] VITALS: BP 125/57; PULSE 80; RESP 16
[2023-12-07] MEDS: FUROSEMIDE 20 MG/2 ML VIAL IVP ONE ×2 (14:00→23:48)
[2023-12-07 16:04] VITALS: BP 102/63; PULSE 85; RESP 20; TEMP 99.3; O2SAT 95
[2023-12-07 17:34] LABS: ALANINE AMINOTRANSFERASE 48 U/L (12-78); ALBUMIN 2.9 g/dL (3.4-5.0); ALKALINE PHOSPHATASE 154 U/L (46-116); ANION GAP 9 mmol/L (8-16); ASPARTATE AMINOTRANSFERASE 32 U/L (15-37); BILIRUBIN,TOTAL 0.7 mg/dL (0.1-1.0); CALCIUM, TOTAL 8.9 mg/dL (8.8-10.5); CARBON DIOXIDE 30 mmol/L (22-29); CHLORIDE 91 mmol/L (98-107); CREATININE 0.89 mg/dL (0.60-1.30); GLOMERULAR FILTR. RATE CALC > 60 mL/min (>60); GLUCOSE,RANDOM 115 mg/dL (70-110); POTASSIUM 5.3 mmol/L (3.5-5.1); SODIUM SERUM 130 mmol/L (136-145); UREA NITROGEN, BLOOD 15 mg/dL (7-18)
[2023-12-07 17:40] LABS: C-REACTIVE PROTEIN QUANT 24.22 mg/dL (0.00-0.30)
[2023-12-07 17:42] LABS: BASOPHILS % (AUTO) 1.2 % (0.0-2.0); EOSINOPHILS % (AUTO) 0.5 % (1.0-6.0); HEMATOCRIT 31.5 % (36-46); HEMOGLOBIN 10.3 g/dL (12.0-16.0); LYMPHOCYTES # (AUTO) 1.7 K/uL (1.0-4.8); LYMPHOCYTES % (AUTO) 9.8 % (22.0-44.0); MEAN CORPUSCULAR HEMOGLOBIN 29.9 pg (26.0-34.0); MEAN CORPUSCULAR HGB CONC 32.6 G/dL (31.0-37.0); MEAN CORPUSCULAR VOLUME 92 fL (80-100); MONOCYTES # (AUTO) 1.3 K/uL (0.1-1.0); MONOCYTES % (AUTO) 7.6 % (2.0-9.0); NEUTROPHILS # (AUTO) 14.3 K/uL (1.8-7.7); NEUTROPHILS % (AUTO) 80.9 % (40.0-70.0); RED BLOOD CELL COUNT(AUTO) 3.44 MIL/uL (4.00-5.20); WHITE BLOOD COUNT (AUTO) 17.7 K/uL (4.5-11.0)
[2023-12-07 18:29] LABS: PLATELET COUNT (AUTO) 466 K/uL (150-450)
[2023-12-07 20:15] VITALS: BP 112/63; PULSE 94; RESP 18; TEMP 99.3; O2SAT 98
[2023-12-07 21:05] LABS: GLUCOMETER DEV NAME(LOC) 6N.2B; GLUCOSE,POINT OF CARE 144 MG/DL (70-110)
[2023-12-07 21:05] LABS: GLUCOMETER DEV NAME(LOC) 6N.2B; GLUCOSE,POINT OF CARE 132 MG/DL (70-110)
[2023-12-07] MEDS: SODIUM POLYSTYRENE SULFONATE 15 GM/60 ML SUSPENSION BOTTLE PO ONE (23:36)
[2023-12-08 03:56] LABS: GLUCOMETER DEV NAME(LOC) 4E.2; GLUCOSE,POINT OF CARE 131 MG/DL (70-110)
[2023-12-08] MEDS: FUROSEMIDE 20 MG TABLET PO SCH (08:30)
[2023-12-08 08:36] LABS: BASOPHILS % (AUTO) 0.2 % (0.0-2.0); EOSINOPHILS % (AUTO) 0.5 % (1.0-6.0); HEMATOCRIT 27.8 % (36-46); HEMOGLOBIN 9.2 g/dL (12.0-16.0); LYMPHOCYTES # (AUTO) 1.4 K/uL (1.0-4.8); LYMPHOCYTES % (AUTO) 10.1 % (22.0-44.0); MEAN CORPUSCULAR HEMOGLOBIN 30.3 pg (26.0-34.0); MEAN CORPUSCULAR HGB CONC 33.2 G/dL (31.0-37.0); MEAN CORPUSCULAR VOLUME 91 fL (80-100); MONOCYTES # (AUTO) 1.2 K/uL (0.1-1.0); MONOCYTES % (AUTO) 8.7 % (2.0-9.0); NEUTROPHILS # (AUTO) 11.2 K/uL (1.8-7.7); NEUTROPHILS % (AUTO) 80.5 % (40.0-70.0); PLATELET COUNT (AUTO) 429 K/uL (150-450); RED BLOOD CELL COUNT(AUTO) 3.04 MIL/uL (4.00-5.20); RED CELL DISTRIBUTION WIDTH 15.6 % (11.5-14.5); WHITE BLOOD COUNT (AUTO) 13.9 K/uL (4.5-11.0)
[2023-12-08 08:37] VITALS: BP 97/44; PULSE 75; RESP 17; TEMP 97.6; O2SAT 91
[2023-12-08 09:10] LABS: ANION GAP 8 mmol/L (8-16); CALCIUM, TOTAL 8.8 mg/dL (8.8-10.5); CARBON DIOXIDE 29 mmol/L (22-29); CHLORIDE 92 mmol/L (98-107); CREATININE 0.72 mg/dL (0.60-1.30); GLOMERULAR FILTR. RATE CALC > 60 mL/min (>60); GLUCOSE,RANDOM 119 mg/dL (70-110); POTASSIUM 4.6 mmol/L (3.5-5.1); SODIUM SERUM 129 mmol/L (136-145); UREA NITROGEN, BLOOD 18 mg/dL (7-18)
[2023-12-08] MEDS: *CLINICAL-MEROPENEM DOSING CLINICAL ONE (12:49)
[2023-12-08] MEDS ORDERED: VANCOMYCIN HCL 1.25 GM in DEXTROSE 5%-WATER 250 ML IV ONE (13:00)
[2023-12-08 13:08] LABS: VANCOMYCIN,RANDOM 0.2 mcg/mL (25.0-50.0)
[2023-12-08] MEDS ORDERED: GADOTERATE MEGLUMINE 10 MMOL/20 ML VIAL IVP ONE ×2 (13:17→13:44)
[2023-12-08] MEDS ORDERED: NALOXONE HCL 1 MG/ML 2 ML SYRINGE IVP PRN (13:30)
[2023-12-08 15:00] VITALS: BP 104/46; PULSE 74; RESP 16; TEMP 98.2; O2SAT 95
[2023-12-08] MEDS ORDERED: SODIUM CHLORIDE 0.9% 500 ML IV ONE (15:01)
[2023-12-08] MEDS: ALBUMIN HUMAN 25%-12.5GM/50ML 50 ML IV ONE (15:15)
[2023-12-08] MEDS: MEROPENEM 1 GM in SODIUM CHLORIDE 0.9% 100 ML IV SCH (16:11)
[2023-12-08 16:41] LABS: CREATINE KINASE, TOTAL ONLY 88 U/L (26-192); PHOSPHORUS 5.3 mg/dL (2.5-4.9)
[2023-12-08] MEDS: VANCOMYCIN HCL 1.75 GM in DEXTROSE 5%-WATER 250 ML IV ONE (17:12)
[2023-12-08] MEDS: FUROSEMIDE 20 MG/2 ML VIAL IVP ONE (19:10)
[2023-12-08] MEDS ORDERED: VANCOMYCIN HCL 1.25 GM in DEXTROSE 5%-WATER 250 ML IV SCH (20:00)
[2023-12-08 20:32] VITALS: BP 124/54; PULSE 84; RESP 18; TEMP 98; O2SAT 92
[2023-12-08 23:47] VITALS: BP 118/62; PULSE 88; RESP 18; TEMP 98.2; O2SAT 96
[2023-12-09 02:26] LABS: GLUCOMETER DEV NAME(LOC) 5N.1D; GLUCOSE,POINT OF CARE 118 MG/DL (70-110)
[2023-12-09 04:32] VITALS: BP 123/54; PULSE 83; RESP 18; TEMP 98.4; O2SAT 94
[2023-12-09 06:26] LABS: GLUCOMETER DEV NAME(LOC) 4E.2; GLUCOSE,POINT OF CARE 120 MG/DL (70-110)
[2023-12-09 07:32] VITALS: BP 103/48; PULSE 81; RESP 18; TEMP 98.2; O2SAT 93
[2023-12-09] MEDS: MULTIVITAMINS WITH MINERALS, THERAPEUTIC TABLET PO SCH (07:46)
[2023-12-09] MEDS: VANCOMYCIN HCL 1.25 GM in DEXTROSE 5%-WATER 250 ML IV SCH (08:00)
[2023-12-09 09:41] LABS: BASOPHILS % (AUTO) 0.7 % (0.0-2.0); EOSINOPHILS % (AUTO) 0.6 % (1.0-6.0); HEMOGLOBIN 9.1 g/dL (12.0-16.0); LYMPHOCYTES % (AUTO) 8.9 % (22.0-44.0); MEAN CORPUSCULAR HEMOGLOBIN 29.4 pg (26.0-34.0); MEAN CORPUSCULAR HGB CONC 32.3 G/dL (31.0-37.0); MEAN CORPUSCULAR VOLUME 91 fL (80-100); MONOCYTES # (AUTO) 0.9 K/uL (0.1-1.0); MONOCYTES % (AUTO) 7.8 % (2.0-9.0); NEUTROPHILS # (AUTO) 9.5 K/uL (1.8-7.7); PLATELET COUNT (AUTO) 440 K/uL (150-450); RED BLOOD CELL COUNT(AUTO) 3.07 MIL/uL (4.00-5.20); RED CELL DISTRIBUTION WIDTH 15.8 % (11.5-14.5); WHITE BLOOD COUNT (AUTO) 11.5 K/uL (4.5-11.0)
[2023-12-09 10:03] LABS: ALANINE AMINOTRANSFERASE 31 U/L (12-78); ALBUMIN 2.2 g/dL (3.4-5.0); ALKALINE PHOSPHATASE 142 U/L (46-116); ANION GAP 8 mmol/L (8-16); ASPARTATE AMINOTRANSFERASE 21 U/L (15-37); BILIRUBIN,TOTAL 0.7 mg/dL (0.1-1.0); CALCIUM, TOTAL 8.4 mg/dL (8.8-10.5); CARBON DIOXIDE 30 mmol/L (22-29); CHLORIDE 91 mmol/L (98-107); CREATINE KINASE, TOTAL ONLY 94 U/L (26-192); CREATININE 0.83 mg/dL (0.60-1.30); GLOMERULAR FILTR. RATE CALC > 60 mL/min (>60); GLUCOSE,RANDOM 147 mg/dL (70-110); POTASSIUM 4.3 mmol/L (3.5-5.1); SODIUM SERUM 129 mmol/L (136-145); TOTAL PROTEIN, SERUM 6.5 g/dL (6.4-8.2); UREA NITROGEN, BLOOD 17 mg/dL (7-18)
[2023-12-09 11:17] VITALS: BP 121/58; PULSE 70; RESP 18; TEMP 97.9; O2SAT 93
[2023-12-09 11:57] LABS: C-REACTIVE PROTEIN QUANT 28.83 mg/dL (0.00-0.30)
[2023-12-09] MEDS ORDERED: 0.9% SODIUM CHLORIDE 10 ML SYRINGE IVP ONE (14:56)
[2023-12-09] MEDS ORDERED: SODIUM CHLORIDE 0.9% 100 ML ONE (14:56)
[2023-12-09] MEDS ORDERED: IOHEXOL 350 MG/ML 150 ML VIAL ONE (14:57)
[2023-12-09 20:29] VITALS: BP 113/63; PULSE 75; RESP 20; TEMP 98.1; O2SAT 92
[2023-12-09] MEDS: SENNOSIDES 8.8 MG/5 ML SYRUP UDCUP PO ONE (22:12)
[2023-12-09 22:21] LABS: GLUCOMETER DEV NAME(LOC) 5S.1C; GLUCOSE,POINT OF CARE 132 MG/DL (70-110)
[2023-12-09 22:21] LABS: GLUCOMETER DEV NAME(LOC) 5S.1C; GLUCOSE,POINT OF CARE 133 MG/DL (70-110)
[2023-12-09 22:21] LABS: GLUCOMETER DEV NAME(LOC) 5S.1C; GLUCOSE,POINT OF CARE 125 MG/DL (70-110)
[2023-12-10] VITALS (8 sets, daily range): BP systolic 96–133; BP diastolic 47–97; PULSE 65–84; RESP 18–20; TEMP 97.7–99.7; O2SAT 94–97
[2023-12-10] MEDS ORDERED: HYDR2TAB37 PO (06:36)
[2023-12-10 07:10] LABS: GLUCOMETER DEV NAME(LOC) 5N.2C; GLUCOSE,POINT OF CARE 134 MG/DL (70-110)
[2023-12-10] MEDS: SPIRONOLACTONE 25 MG TABLET PO SCH (09:50)
[2023-12-10] MEDS: FUROSEMIDE 20 MG TABLET PO SCH (09:50)
[2023-12-10 12:23] LABS: BASOPHILS % (AUTO) 1.1 % (0.0-2.0); EOSINOPHILS % (AUTO) 0.8 % (1.0-6.0); HEMATOCRIT 26.8 % (36-46); HEMOGLOBIN 8.7 g/dL (12.0-16.0); LYMPHOCYTES % (AUTO) 8.8 % (22.0-44.0); MEAN CORPUSCULAR HEMOGLOBIN 29.5 pg (26.0-34.0); MEAN CORPUSCULAR HGB CONC 32.4 G/dL (31.0-37.0); MEAN CORPUSCULAR VOLUME 91 fL (80-100); MONOCYTES % (AUTO) 8.5 % (2.0-9.0); NEUTROPHILS # (AUTO) 9.2 K/uL (1.8-7.7); NEUTROPHILS % (AUTO) 80.8 % (40.0-70.0); PLATELET COUNT (AUTO) 467 K/uL (150-450); RED BLOOD CELL COUNT(AUTO) 2.94 MIL/uL (4.00-5.20); RED CELL DISTRIBUTION WIDTH 15.7 % (11.5-14.5); WHITE BLOOD COUNT (AUTO) 11.4 K/uL (4.5-11.0)
[2023-12-10 12:39] LABS: ANION GAP 8 mmol/L (8-16); CALCIUM, TOTAL 8.3 mg/dL (8.8-10.5); CARBON DIOXIDE 30 mmol/L (22-29); CHLORIDE 92 mmol/L (98-107); CREATININE 0.75 mg/dL (0.60-1.30); GLOMERULAR FILTR. RATE CALC > 60 mL/min (>60); GLUCOSE,RANDOM 145 mg/dL (70-110); POTASSIUM 4.2 mmol/L (3.5-5.1); SODIUM SERUM 130 mmol/L (136-145); UREA NITROGEN, BLOOD 14 mg/dL (7-18)
[2023-12-10 12:52] LABS: ALANINE AMINOTRANSFERASE 43 U/L (12-78); ALKALINE PHOSPHATASE 130 U/L (46-116); ASPARTATE AMINOTRANSFERASE 34 U/L (15-37); BILIRUBIN,TOTAL 0.6 mg/dL (0.1-1.0); TOTAL PROTEIN, SERUM 6.2 g/dL (6.4-8.2); VANCOMYCIN,RANDOM 30.2 mcg/mL (25.0-50.0)
[2023-12-10 21:16] LABS: GLUCOMETER DEV NAME(LOC) 5S.1C; GLUCOSE,POINT OF CARE 150 MG/DL (70-110)
[2023-12-10 21:16] LABS: GLUCOMETER DEV NAME(LOC) 5S.1C; GLUCOSE,POINT OF CARE 134 MG/DL (70-110)
[2023-12-10] MEDS: ATORVASTATIN CALCIUM 20 MG TABLET PO SCH (21:19)
[2023-12-10] MEDS: SODIUM CHLORIDE 0.9% 1,000 ML IV ONE (21:58)
[2023-12-11 03:52] VITALS: BP 107/47; PULSE 76; RESP 18; TEMP 99.5; O2SAT 97
[2023-12-11] MEDS ORDERED: SODIUM CHLORIDE 0.9% 500 ML IV ONE (03:54)
[2023-12-11 05:50] LABS: GLUCOMETER DEV NAME(LOC) 5N.2C; GLUCOSE,POINT OF CARE 144 MG/DL (70-110)
[2023-12-11 09:05] LABS: GLUCOMETER DEV NAME(LOC) 5S.1C; GLUCOSE,POINT OF CARE 123 MG/DL (70-110)
[2023-12-11 09:36] VITALS: BP 110/50; PULSE 71; RESP 18; TEMP 98.5; O2SAT 98
[2023-12-11 11:45] LABS: GLUCOMETER DEV NAME(LOC) 5N.2C; GLUCOSE,POINT OF CARE 124 MG/DL (70-110)
[2023-12-11 13:02] VITALS: BP 116/57; PULSE 72; RESP 18; TEMP 98.3; O2SAT 99
== END 2023-12-11 13:30 | DRG 720 ==
LOC: EMS 16:10 → EDH 21:18 → 5S 11-28 12:28 → 4E 11-30 22:55 → 5S 12-08 14:46
PROVIDERS: ADMIT Internal Medicine; ATTEND Internal Medicine
PROC: 05HM33Z Insertion of Infusion Device into Right Internal Jugular Vein, Percutaneous Approach (ICD-10-PCS; principal; 2023-11-26)
PROC: B543ZZA Ultrasonography of Right Jugular Veins, Guidance (ICD-10-PCS; 2023-11-26)
PROC: 05HC33Z Insertion of Infusion Device into Left Basilic Vein, Percutaneous Approach (ICD-10-PCS; 2023-12-06)
PROC: B54NZZA Ultrasonography of Left Upper Extremity Veins, Guidance (ICD-10-PCS; 2023-12-06)
DX: A41.9 Sepsis, unspecified organism (principal); N17.0 Acute kidney failure with tubular necrosis; R65.21 Severe sepsis with septic shock; M72.6 Necrotizing fasciitis; G93.41 Metabolic encephalopathy; I50.33 Acute on chronic diastolic (congestive) heart failure; E22.2 Syndrome of inappropriate secretion of antidiuretic hormone; M62.82 Rhabdomyolysis; C51.9 Malignant neoplasm of vulva, unspecified; Z20.822 Contact with and (suspected) exposure to COVID-19; E87.20 Acidosis, unspecified; L03.115 Cellulitis of right lower limb; L03.116 Cellulitis of left lower limb; R74.01 Elevation of levels of liver transaminase levels; R79.89 Other specified abnormal findings of blood chemistry; E66.01 Morbid (severe) obesity due to excess calories; E86.1 Hypovolemia; F15.10 Other stimulant abuse, uncomplicated; F41.9 Anxiety disorder, unspecified; G89.29 Other chronic pain; I21.A1 Myocardial infarction type 2; I49.3 Ventricular premature depolarization; Z85.44 Personal history of malignant neoplasm of other female genital organs; Z86.14 Personal history of Methicillin resistant Staphylococcus aureus infection; Z91.199 Patient's noncompliance with other medical treatment and regimen due to unspecified reason; Z68.42 Body mass index [BMI] 45.0-49.9, adult; Z88.5 Allergy status to narcotic agent
CPT/HCPCS: 36245; 36569; 71045; 71250; 72192; 73700; 73701; 74150; 74177; 76881; 76937; 80048; 80053; 80202; 80307; 81001; 82550; 82570; 82805; 82962; 83605; 83735; 83880; 84100; 84145; 84300; 84484; 84703; 85025; 85610; 85651; 85730; 86140; 87040; 87804; 93005; 93306; 93925; 93970; 97161; 97530; 99285; G0378; J0131; J0690; J0696; J1170; J1200; J1644; J1940; J1956; J2060; J2185; J2543; J3370; J3475; J3490; J7030; J7040; J7050; J7060; P9046; P9047; 36415-L1; 36415-TC